=== PATIENT | male | born 2000 | race Caucasian/White ===

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

== ENCOUNTER 2021-12-21 16:20 | Emergency (ER) | payer MEDICAID ==
[2021-12-21 18:17] VITALS: BP 145/84; PULSE 106
== END 2021-12-21 18:26 | disposition home or self-care (01) ==
LOC: MW.ED 16:20
DX: S40.011A Contusion of right shoulder, initial encounter (principal); W22.8XXA Striking against or struck by other objects, initial encounter; Y93.22 Activity, ice hockey; Y92.214 College as the place of occurrence of the external cause
CPT/HCPCS: 73030-26-RT; 73030-RT; 99283

== ENCOUNTER 2022-04-11 18:07 | Emergency (ER) | payer MEDICAID ==
[2022-04-11] MEDS ORDERED: Sodium Chloride 0.9% 1,000 ML IV ONE (18:46)
[2022-04-11] MEDS ORDERED: Sodium Chloride 0.9% 2.5 ML Syringe FLUSH PRN (18:46)
[2022-04-11] MEDS ORDERED: Sodium Chloride 0.9% 10 ML Syringe FLUSH PRN (18:46)
[2022-04-11 19:17] LABS: BLOOD UREA NITROGEN,BUN 17 mg/dL (7.0-18.0); CARBON DIOXIDE,CO2 22.1 mmol/L (21.0-32.0); CHLORIDE,CL 98 mmol/L (98-107); GLUCOSE RANDOM 127 mg/dL (74-106); POTASSIUM,K 2.9 mmol/L (3.5-5.1); SODIUM,NA 137 mmol/L (136-148)
[2022-04-11] MEDS ORDERED: Potassium Chloride 10% 20 MEQ/15 ML Soln 30 ML UD Cup PO ONE (19:32)
[2022-04-11] MEDS ORDERED: ALPRAZolam 0.25 MG Tab PO ONE (19:44)
[2022-04-11 20:35] VITALS: BP 136/96; PULSE 92
== END 2022-04-11 20:52 | disposition home or self-care (01) ==
LOC: MW.ED 18:07
DX: R07.89 Other chest pain (principal); E87.6 Hypokalemia; R20.2 Paresthesia of skin; F41.9 Anxiety disorder, unspecified
CPT/HCPCS: 36415; 71045; 80053; 84484; 85025; 85379; 99285; A9270; J3490; J7030; 93010; 99284